=== PATIENT | female | born 1990 | race Caucasian/White ===

== ENCOUNTER → 2021-07-14 07:32 | Outpatient (CLI) | payer OTHER | END | disposition home or self-care (01) | LOC: LAB 07:32 | PROVIDERS: ATTEND Specialist | DX: D50.8 Other iron deficiency anemias (principal); N39.0 Urinary tract infection, site not specified; E11.42 Type 2 diabetes mellitus with diabetic polyneuropathy; E78.2 Mixed hyperlipidemia; K76.0 Fatty (change of) liver, not elsewhere classified; E03.8 Other specified hypothyroidism ==

== ENCOUNTER 2021-08-21 12:43 | Emergency (ER) | payer OTHER ==
[~2021-08-21] VITALS: Ht 154.9 cm; Wt 74.4 kg
[2021-08-21] MEDS ORDERED: SYNTHROID75 MCG (12:50)
[2021-08-21] MEDS ORDERED: ZOVIRAX800 MG PO (15:45)
[2021-08-21] MEDS ORDERED: KETO10TA2 PO (15:45)
[2021-08-21] MEDS ORDERED: ZOVIRAX5 GM TOP (15:45)
== END 2021-08-21 16:28 | disposition home or self-care (01) ==
LOC: ER 12:43
DX: B02.9 Zoster without complications (principal); E03.9 Hypothyroidism, unspecified

== ENCOUNTER 2021-09-22 08:00 | Outpatient (CLI) | payer OTHER ==
[~2021-09-22 08:00] MED LIST: KETO10TA2 PO; SYNTHROID75 MCG; ZOVIRAX5 GM TOP; ZOVIRAX800 MG PO
== END 2021-09-22 08:15 | disposition home or self-care (01) ==
LOC: PPH VACUNA 08:00
PROVIDERS: ATTEND Emergency Medicine Pediatric Emergency Medicine
DX: Z23 Encounter for immunization (principal)

== ENCOUNTER → 2021-11-06 08:34 | Outpatient (CLI) | payer OTHER | END | disposition home or self-care (01) | LOC: LAB 08:34 | PROVIDERS: ATTEND Specialist | DX: D50.8 Other iron deficiency anemias (principal); N39.0 Urinary tract infection, site not specified; E11.42 Type 2 diabetes mellitus with diabetic polyneuropathy; K76.0 Fatty (change of) liver, not elsewhere classified; E03.8 Other specified hypothyroidism; E21.0 Primary hyperparathyroidism ==

== ENCOUNTER 2021-11-23 17:19 | Outpatient (CLI) | payer OTHER | END 2021-11-23 17:30 | disposition home or self-care (01) | LOC: LAB 17:19 | PROVIDERS: ATTEND General Practice | DX: Z34.90 Encounter for supervision of normal pregnancy, unspecified, unspecified trimester (principal) ==

== ENCOUNTER 2022-01-22 09:01 | Outpatient (CLI) | payer OTHER | END 2022-01-22 09:02 | disposition home or self-care (01) | LOC: LAB 09:01 | PROVIDERS: ATTEND Internal Medicine Endocrinology, Diabetes & Metabolism | DX: E55.9 Vitamin D deficiency, unspecified (principal); N60.11 Diffuse cystic mastopathy of right breast; N60.12 Diffuse cystic mastopathy of left breast; E66.9 Obesity, unspecified; N91.4 Secondary oligomenorrhea; R97.1 Elevated cancer antigen 125 [CA 125]; N94.6 Dysmenorrhea, unspecified; M94.9 Disorder of cartilage, unspecified; D39.8 Neoplasm of uncertain behavior of other specified female genital organs; N91.2 Amenorrhea, unspecified; N91.1 Secondary amenorrhea; N30.00 Acute cystitis without hematuria; R30.0 Dysuria; E83.32 Hereditary vitamin D-dependent rickets (type 1) (type 2); N81.0 Urethrocele; E11.65 Type 2 diabetes mellitus with hyperglycemia; E78.00 Pure hypercholesterolemia, unspecified; E03.8 Other specified hypothyroidism ==

== ENCOUNTER 2022-01-25 10:53 | Outpatient (CLI) | payer OTHER | END 2022-01-25 11:00 | disposition home or self-care (01) | LOC: SONOGRAMA 10:53 | PROVIDERS: ATTEND Obstetrics & Gynecology Gynecology | DX: N83.291 Other ovarian cyst, right side (principal); E04.8 Other specified nontoxic goiter; R10.12 Left upper quadrant pain; R10.11 Right upper quadrant pain ==

== ENCOUNTER 2022-02-25 16:10 | Outpatient (CLI) | payer OTHER | END 2022-02-25 23:00 | disposition home or self-care (01) | LOC: LAB 16:10 | PROVIDERS: ATTEND Surgery | DX: Z11.59 Encounter for screening for other viral diseases (principal) ==

== ENCOUNTER 2022-05-14 18:29 | Emergency (ER) | payer OTHER ==
[~2022-05-14] VITALS: Ht 160 cm; Wt 77.1 kg
== END 2022-05-14 22:58 | disposition home or self-care (01) ==
LOC: ER 18:29
DX: N92.0 Excessive and frequent menstruation with regular cycle (principal); Z88.2 Allergy status to sulfonamides

== ENCOUNTER 2022-06-28 10:51 | Outpatient (CLI) | payer OTHER | END 2022-06-28 11:03 | disposition home or self-care (01) | LOC: SONOGRAMA 10:51 | PROVIDERS: ATTEND Obstetrics & Gynecology Gynecology | DX: N83.209 Unspecified ovarian cyst, unspecified side (principal); N83.292 Other ovarian cyst, left side; N83.291 Other ovarian cyst, right side; E55.9 Vitamin D deficiency, unspecified; N60.11 Diffuse cystic mastopathy of right breast; N60.12 Diffuse cystic mastopathy of left breast; E66.9 Obesity, unspecified; N91.4 Secondary oligomenorrhea; N92.0 Excessive and frequent menstruation with regular cycle ==

== ENCOUNTER 2023-01-13 07:37 | Outpatient (CLI) | payer OTHER | END 2023-01-13 07:46 | disposition home or self-care (01) | LOC: LAB 07:37 | PROVIDERS: ATTEND Internal Medicine Endocrinology, Diabetes & Metabolism | DX: E11.65 Type 2 diabetes mellitus with hyperglycemia (principal); E78.00 Pure hypercholesterolemia, unspecified; E03.8 Other specified hypothyroidism; E55.9 Vitamin D deficiency, unspecified ==

== ENCOUNTER 2023-01-13 07:52 | Outpatient (CLI) | payer OTHER | END 2023-01-13 08:05 | disposition home or self-care (01) | LOC: SONOGRAMA 07:52 | PROVIDERS: ATTEND Internal Medicine Endocrinology, Diabetes & Metabolism | DX: E04.8 Other specified nontoxic goiter (principal) ==

== ENCOUNTER 2023-12-12 08:36 | Outpatient (CLI) | payer OTHER | END 2023-12-12 08:51 | disposition home or self-care (01) | LOC: RAD 08:36 | PROVIDERS: ATTEND Obstetrics & Gynecology Gynecology | DX: N83.209 Unspecified ovarian cyst, unspecified side (principal); N83.292 Other ovarian cyst, left side; N83.291 Other ovarian cyst, right side; N60.11 Diffuse cystic mastopathy of right breast; N60.12 Diffuse cystic mastopathy of left breast; E66.9 Obesity, unspecified; N91.4 Secondary oligomenorrhea; N92.0 Excessive and frequent menstruation with regular cycle; N84.0 Polyp of corpus uteri; J32.8 Other chronic sinusitis ==